=== PATIENT | male | born 1980 | race Caucasian/White ===

== ENCOUNTER 2023-08-30 06:57 | Day surgery (SDC) | payer BC, SELFPAY ==
[2023-08-30 07:13] VITALS: BP 133/79; PULSE 77; RESP 18; TEMP 36.2; O2SAT 99
[2023-08-30] MEDS: sodium chloride 0.9% 1,000 ML 30 ML IV (07:21)
--- NOTE | 2023-08-30 07:26 | ANES.PREANE2 ---
Pre-Anesthetic Assessment Height/Weight: Height 1.83 m Weight 97.976 kg Temp Pulse Resp BP Pulse Ox O2 Del Method 97.2 F L 77 18 133/79 99 Room Air 08/30/23 07:13 08/30/23 07:13 08/30/23 07:13 08/30/23 07:13 08/30/23 07:13 08/30/23 07:13 Preop Diagnosis: screening constipation Operation Date: 08/30/23 08:00 Proposed Procedures p Colonoscopy 51789,Z12.11,Z80.0,K59.00(Not Applicable) - Miguelangel Araujo DO Familial anesthetic complications: none Last intake: Intake Last Liquid Date 08/29/23 Last Liquid Time 23:00 Last Solid Date 08/28/23 Last Solid Time 16:00 Social Tobacco (smokeless 08/29) and No alcohol Exam alert, oriented x 3, clear to auscultation bilaterally and regular rate & rhythm Airway Submandibular: within normal limits Cervical ROM: within normal limits Mallampati: Class II Dentition: full Comments: Comments: bearded Pulmonary pulmonary mass reported from patient no imaging available. CV/HEM None reported None reported Hepatic None reported GI None reported Metabolic None reported Musc/skel None reported Neuropsych None reported Lymphoma - Venetoclax Anesthetic Plan ASA status: 3 Anesthesia: MAC Medications/Allergies Home Medications Medication Instructions Recorded Confirmed Last Taken Type allopurinol 300 mg tablet 300 mg PO DAILY 08/28/23 08/28/23 08/28/23 History oxycodone 5 mg tablet 5 mg PO PRN 08/28/23 08/28/23 08/27/23 History prochlorperazine maleate 10 mg 10 mg PO Q6H PRN Nausea 08/28/23 08/28/23 08/28/23 History tablet (Compazine) venetoclax 10 mg (14)-50 mg See Rx Instructions .Route .COMPLEX 08/28/23 08/28/23 08/29/23 History (7)-100 mg (21) tablets in a dose pack (Venclexta Starting Pack) Allergies Allergy/AdvReac Type Severity Reaction Status Date / Time No Known Allergies Allergy Unverified 07/04/23 15:12 Current Medications Generic Name Dose Route Start Last Admin Trade Name Freq PRN Reason Stop Dose Admin Sodium Chloride 1,000 mls @ 30 mls/hr 08/30/23 07:00 08/30/23 07:21 Sodium Chloride 0.9% IV 08/31/23 06:59 30 mls/hr .Q24H [facility] Administration PFSH Anesthesia Medical History (Updated 08/30/23 @ 07:25 by Cheyanne Fam CRNA) Constipation Family history of colon cancer Surgical History (Updated 07/04/23 @ 15:27 by Miguelangel Araujo DO) History of appendectomy Social History (Updated 08/28/23 @ 08:43 by Heike Sosa RN) Smoking and tobacco/nicotine status: current every day tobacco/nicotine user smokeless tobacco Data Anesthesia Cardiac Studies: No Data to Display
--- NOTE | 2023-08-30 07:57 | PM.HP ---
Providers/Chief Complaint Primary Care Provider: Helen Tatum History of Present Illness Lucien Lewis is a 43 year old male Review of Systems General: Reports: 10 or more systems reviewed and unremarkable except in HPI and below Medications/Allergies Home Medications Medication Instructions Recorded Confirmed Last Taken Type allopurinol 300 mg tablet 300 mg PO DAILY 08/28/23 08/28/23 08/28/23 History oxycodone 5 mg tablet 5 mg PO PRN 08/28/23 08/28/23 08/27/23 History prochlorperazine maleate 10 mg 10 mg PO Q6H PRN Nausea 08/28/23 08/28/23 08/28/23 History tablet (Compazine) venetoclax 10 mg (14)-50 mg See Rx Instructions .Route .COMPLEX 08/28/23 08/28/23 08/29/23 History (7)-100 mg (21) tablets in a dose pack (Venclexta Starting Pack) Allergies Allergy/AdvReac Type Severity Reaction Status Date / Time No Known Allergies Allergy Unverified 07/04/23 15:12 PFSH Acute PFSH: Medical History (Updated 08/30/23 @ 07:57 by Miguelangel Araujo DO) Constipation Family history of colon cancer Surgical History (Updated 07/04/23 @ 15:27 by Miguelangel Araujo DO) History of appendectomy Social History (Updated 08/28/23 @ 08:43 by Heike Sosa RN) Smoking and tobacco/nicotine status: current every day tobacco/nicotine user smokeless tobacco Vitals/I&O/Wt Last Vital Signs Temp 97.2 F L 08/30/23 07:13 Pulse 77 08/30/23 07:13 Resp 18 08/30/23 07:13 BP 133/79 08/30/23 07:13 Pulse Ox 99 08/30/23 07:13 O2 Del Method Room Air 08/30/23 07:13 Weight last 48 hrs Weight 216 lb A&P Assessment and plan (1) Colon cancer screening: (2) Family history of colon cancer: Plan Colonoscopy Attestations Medical Necessity Statement*: Home Coding Level of Care Code Acute Code for Chg Fwd Diagnoses Colon cancer screening Z12.11 Family history of colon cancer Z80.0
[2023-08-30 08:26] VITALS: BP 97/58; PULSE 82; RESP 14; TEMP 36.1; O2SAT 94
[2023-08-30 08:37] VITALS: BP 108/64; PULSE 80; RESP 18; O2SAT 97
--- NOTE | 2023-08-30 08:50 | ANE.PACU2 ---
Inpatient post-anesthesia follow up: Airway intact: Yes Vital signs: Temperature 97 F Pulse Rate 80 Respiratory Rate 18 Blood Pressure 108/64 Pulse Oximetry 97 Oxygen Delivery Me thod Room Air Oxygen Flow Rate Fraction of Inspir ed Oxygen Hydration adequate: Yes Nausea and vomiting: No Pain level: 1 Mental status: Baseline
== END 2023-08-30 08:52 | disposition home or self-care (01) ==
PROVIDERS: PCP Physician Assistant; Visit Provider Surgery
PROC: 0DJD8ZZ Inspection of Lower Intestinal Tract, Via Natural or Artificial Opening Endoscopic (ICD-10-PCS; CPT 45378; principal; 2023-08-30 08:00)
DX: Z12.11 Encounter for screening for malignant neoplasm of colon (principal); Z80.0 Family history of malignant neoplasm of digestive organs; F17.290 Nicotine dependence, other tobacco product, uncomplicated; K63.5 Polyp of colon
CPT/HCPCS: 45385; 88305; J2704; J7030